=== PATIENT | male | born 1970 | race Caucasian/White ===

== ENCOUNTER → 2021-04-28 | Outpatient (CLI) | payer SELFPAY ==
[2021-04-28 11:54] LABS: BASO # 0.1 10^3/uL (0.0-0.2); BASO % 0.8 % (0.0-1.0); EOS # 1.4 10^3/uL (0.0-0.5); EOS % 14.4 % (0.0-3.0); HEMATOCRIT 44.5 % (42.0-52.0); HEMOGLOBIN 14.8 g/dl (13.5-17.5); LYMPH # 2.1 10^3/uL (1.5-5.0); LYMPH % 20.5 % (24.0-44.0); MEAN CORPUSCULAR HEMOGLOBIN 30.5 pg (27.0-33.0); MEAN CORPUSCULAR HGB CONC 33.3 g/dl (32.0-36.5); MEAN CORPUSCULAR VOLUME 91.8 fl (80.0-96.0); MONO % 9.9 % (2.0-8.0); NEUTROPHILS # 5.4 10^3/uL (1.5-8.5); NEUTROPHILS % 54.1 % (36.0-66.0); PLATELET COUNT, AUTOMATED 385 10^3/uL (150-450); RED BLOOD COUNT 4.85 10^6/uL (4.30-6.10)
[2021-04-28 12:23] LABS: ERYTHROCYTE SEDIMENTATION RATE 41 mm/hr (0-15)
[2021-04-28 12:32] LABS: C REACTIVE PROTEIN QUANTITATIV 3.52 MG/DL (0.00-0.30); RHEUMATOID FACTOR QUANT < 10.0 IU/ML (<15.0); URIC ACID 4.6 MG/DL (3.5-7.2)
== END ==
LOC: M WUC 08:49
PROVIDERS: ATTEND Physician Assistant
DX: M10.072 Idiopathic gout, left ankle and foot (principal)